=== PATIENT | male | born 1945 | race Caucasian/White ===

== ENCOUNTER 2020-08-22 12:32 | Observation (INO) | payer OTHER, SELFPAY ==
[~2020-08-22] VITALS: Ht 177.8 cm; Wt 88.5 kg
[~2020-08-22 12:32] MED LIST: ASPIRIN 325MG325 MG PO; FENOFIBRATE145 MG PO; FLOMAX0.4 MG PO; GLUCOPHAGE1000 MG PO; LEVAQUIN500 MG PO; LEVAQUIN750 MG PO; LISINOPRIL2.5 MG PO; LOPRESSOR 25 MG25 MG PO; METOPROLOL SUCC25 MG PO; OMNICEF 300 MG300 MG PO; PLETAL 100 MG100 MG PO; TOPROL XL25 MG PO; ZESTRIL5 MG PO; ZOCOR40 MG PO
[2020-08-22 13:36] LABS: HEMOGLOBIN 13.5 gm/dl (14.0-17.5); RED BLOOD COUNT 4.39 M/UL (4.20-5.50); WHITE BLOOD COUNT 13.3 K/UL (4.5-11.0)
[2020-08-22 14:00] LABS: BUN/CREATININE RATIO 18 (0-10)
[2020-08-23 03:20] LABS: HEMOGLOBIN 12.3 gm/dl (14.0-17.5); RED BLOOD COUNT 4.02 M/UL (4.20-5.50); WHITE BLOOD COUNT 11.4 K/UL (4.5-11.0)
[2020-08-23 03:43] LABS: BUN/CREATININE RATIO 15 (0-10)
[2020-08-23] MEDS ORDERED: FLOMAX 0.4 MG0.4 MG PO (10:55)
[2020-08-23] MEDS ORDERED: LEVOFLOXACIN500 MG PO (10:55)
== END 2020-08-23 13:33 | disposition home or self-care (01) ==
LOC: ER1 12:32 → CDU 15:11 → MED SURG 4 16:35
PROVIDERS: Emergency Medicine; Physician Assistant; ADMIT Family Medicine
DX: G93.40 Encephalopathy, unspecified (principal); N30.00 Acute cystitis without hematuria; I25.10 Atherosclerotic heart disease of native coronary artery without angina pectoris; E78.5 Hyperlipidemia, unspecified; Z95.1 Presence of aortocoronary bypass graft; Z87.891 Personal history of nicotine dependence; Z83.3 Family history of diabetes mellitus; Z82.49 Family history of ischemic heart disease and other diseases of the circulatory system; E11.9 Type 2 diabetes mellitus without complications; Z79.84 Long term (current) use of oral hypoglycemic drugs; Z79.82 Long term (current) use of aspirin; Z79.899 Other long term (current) drug therapy; Z20.822 Contact with and (suspected) exposure to COVID-19
CPT/HCPCS: 96374; 36415; 70450; 71045; 80048; 80053; 81001; 82140; 82550; 82553; 82962; 83605; 83874; 84484; 85025; 87040; 87077; 87086; 87186; 93005; 96372; 96376; 99285; G0378; J0696; J7030; U0002

== ENCOUNTER 2021-02-23 09:08 | Observation (INO) | payer OTHER ==
[~2021-02-23] VITALS: Ht 177.8 cm; Wt 86.2 kg
[~2021-02-23 09:08] MED LIST changes: -ASPIRIN 325MG325 MG PO; +FLOMAX 0.4 MG0.4 MG PO; +LEVOFLOXACIN500 MG PO
[2021-02-23 09:49] LABS: HEMOGLOBIN 14.6 gm/dl (14.0-17.5); RED BLOOD COUNT 4.8 M/UL (4.20-5.50)
[2021-02-23 10:22] LABS: BUN/CREATININE RATIO 20 (0-10)
[2021-02-23] MEDS ORDERED: OXYBUTYNIN CHLO15 MG PO (11:38)
[2021-02-23] MEDS ORDERED: CLOTRIMAZOLE-BE30 ML TP (11:39)
[2021-02-23] MEDS ORDERED: ASPIRIN EC81 MG PO (18:25)
[2021-02-24 05:56] LABS: HEMOGLOBIN 13.5 gm/dl (14.0-17.5); RED BLOOD COUNT 4.59 M/UL (4.20-5.50)
[2021-02-24 06:21] LABS: BUN/CREATININE RATIO 21 (0-10)
[2021-02-24] MEDS ORDERED: ATORVASTATIN CA20 MG PO (16:41)
== END 2021-02-24 20:10 | disposition home or self-care (01) ==
LOC: ER1 09:08 → CDU 10:51 → MED SURG 4 10:51
PROVIDERS: Emergency Medicine; Physician Assistant; ADMIT Internal Medicine
PROC: 4A023N8 Measurement of Cardiac Sampling and Pressure, Bilateral, Percutaneous Approach (ICD-10-PCS; principal; 2021-02-24)
PROC: B2111ZZ Fluoroscopy of Multiple Coronary Arteries using Low Osmolar Contrast (ICD-10-PCS; 2021-02-24)
DX: I25.119 Atherosclerotic heart disease of native coronary artery with unspecified angina pectoris (principal); T82.868A Thrombosis due to vascular prosthetic devices, implants and grafts, initial encounter; I10 Essential (primary) hypertension; E78.5 Hyperlipidemia, unspecified; E11.65 Type 2 diabetes mellitus with hyperglycemia; N40.0 Benign prostatic hyperplasia without lower urinary tract symptoms; I45.10 Unspecified right bundle-branch block; R77.8 Other specified abnormalities of plasma proteins; R00.1 Bradycardia, unspecified; I86.8 Varicose veins of other specified sites; Z20.822 Contact with and (suspected) exposure to COVID-19; Z95.1 Presence of aortocoronary bypass graft; Z87.442 Personal history of urinary calculi; Z79.82 Long term (current) use of aspirin; Z79.84 Long term (current) use of oral hypoglycemic drugs; Z79.899 Other long term (current) drug therapy; Y83.2 Surgical operation with anastomosis, bypass or graft as the cause of abnormal reaction of the patient, or of later complication, without mention of misadventure at the time of the procedure
CPT/HCPCS: ECHO; 36415; 71045; 80048; 80053; 80061; 82550; 82553; 82962; 83036; 83874; 84484; 85025; 85730; 93005; 93306; 99285; C1760; C1769; C1894; G0378; J1644; J2250; J3010; Q9965; Q9967; U0002

== ENCOUNTER → 2021-03-18 | Outpatient (CLI) | payer OTHER ==
[~2021-03-18] MED LIST changes: +ASPIRIN EC81 MG PO; +ATORVASTATIN CA20 MG PO; +CLOTRIMAZOLE-BE30 ML TP; +OXYBUTYNIN CHLO15 MG PO
== END ==
LOC: HEART 5 03-11 08:15
DX: I25.10 Atherosclerotic heart disease of native coronary artery without angina pectoris (principal)
CPT/HCPCS: 78452; A9502; J2785

== ENCOUNTER → 2021-06-01 | Outpatient (CLI) | payer OTHER, SELFPAY | LOC: HEART 5 10:00 | DX: I50.22 Chronic systolic (congestive) heart failure (principal); I34.0 Nonrheumatic mitral (valve) insufficiency | CPT/HCPCS: 93306 ==

== ENCOUNTER → 2021-07-28 | Outpatient (CLI) | payer OTHER, SELFPAY | LOC: KOH-I 15:00 | DX: M25.562 Pain in left knee (principal); M17.12 Unilateral primary osteoarthritis, left knee | CPT/HCPCS: 73564 ==